=== PATIENT | female | born 1975 | race Caucasian/White ===

== ENCOUNTER 2017-03-01 00:35 | Emergency (ER) | payer OTHER ==
[2017-03-01 03:00] VITALS: BP 110/74
== END 2017-03-01 03:00 | disposition home or self-care (01) ==
LOC: ED 00:35
DX: H66.93 Otitis media, unspecified, bilateral (principal)

== ENCOUNTER 2018-01-26 08:48 | Inpatient (IN) | payer OTHER ==
[~2018-01-26] VITALS: Ht 157.5 cm; Wt 82.6 kg
[2018-01-26 08:57] VITALS: Ht 157.5 cm; Wt 82.6 kg
[2018-01-26 09:50] LABS: BASOPHIL % 0.5 % (0-2)
[2018-01-26 10:00] LABS: CALCIUM 8.8 mg/dL (8.5-10.1); CARBON DIOXIDE 27.2 mmol/L (21-32); CHLORIDE SERUM 102 mmol/L (98-107); CREATININE SERUM 0.8 mg/dL (0.6-1.0); GFR1 > 60 mL/min; GLUCOSE SERUM 94 mg/dL (74-106); SODIUM SERUM 138 mmol/L (136-145)
[2018-01-26 10:04] LABS: ALBUMIN 3.9 g/dL (3.4-5.0); ALKALINE PHOSPHATASE 70 U/L (46-116); ALT/SGPT 30 U/L (14-59); AST/SGOT 19 U/L (15-37); BILIRUBIN TOTAL 0.2 mg/dL (0.20-1.00); CHOLESTEROL 179 mg/dL (<200); CHOLESTEROL/HDL RATIO 3.3; HDL CHOLESTEROL 55 mg/dL (40-60); LIPASE 162 IU/L (73-393); TOTAL PROTEIN, SERUM 8.2 g/dL (6.4-8.2); TRIGLYCERIDES 152 mg/dL (<150)
[2018-01-26 10:06] LABS: PLATELET COUNT 488 x10^3mcL (130-400); RED CELL DISTRIBUTION WIDTH 21.2 % (11.5-14.5)
[2018-01-26 10:08] LABS: T3 TOTAL 0.89 ng/mL
[2018-01-26 10:45] LABS: FREE T4 1.13 ng/dL (0.76-1.46); FREE THYROXINE INDEX 2.9 ug/dL (1.4-4.5); T4(THYROXINE) 8.6 ug/dL (4.7-13.3)
[2018-01-26 12:21] LABS: microscopic required? NO
[2018-01-26 12:26] VITALS: BP 115/73
[2018-01-26 12:29] LABS: UA SPECIFIC GRAVITY <=1.005 (1.005-1.035); urine erythrocyte NEGATIVE (NEGATIVE)
[2018-01-26 12:35] LABS: AMPHETAMINE QUAL UR NONE DETECTED (NEG <=1000)
[2018-01-26 15:34] LABS: MAGNESIUM 1.9 mg/dL (1.8-2.4); PHOSPHOROUS 3.9 mg/dL (2.5-4.9)
[2018-01-26 17:00] VITALS: BP 123/74
[2018-01-26 21:49] VITALS: BP 95/66
[2018-01-27 06:28] VITALS: BP 119/75
[2018-01-27 06:37] LABS: CALCIUM 8.8 mg/dL (8.5-10.1); CARBON DIOXIDE 24.2 mmol/L (21-32); CHLORIDE SERUM 105 mmol/L (98-107); CREATININE SERUM 0.6 mg/dL (0.6-1.0); GFR1 > 60 mL/min; GLUCOSE SERUM 83 mg/dL (74-106); MAGNESIUM 1.8 mg/dL (1.8-2.4); PHOSPHOROUS 4.6 mg/dL (2.5-4.9); POTASSIUM SERUM 4.4 mmol/L (3.5-5.1); SODIUM SERUM 140 mmol/L (136-145)
[2018-01-27 07:46] LABS: PLATELET COUNT 494 x10^3mcL (130-400); RED CELL DISTRIBUTION WIDTH 20.7 % (11.5-14.5)
[2018-01-27 08:20] VITALS: BP 115/73
[2018-01-27 09:36] LABS: BAND NEUTROPHIL 4 % (0-10); BASOPHIL 0 % (0-2); MONOCYTE 5 % (0-7); SEGMENTED NEUTROPHILS 50 % (37-75); rbc morphology (normal/abnorm) ABNORMAL (NORMAL)
[2018-01-27 09:38] LABS: ovalocyte/elliptocyte 1+; target cell (codocyte) 1+
[2018-01-27] MEDS ORDERED: GOOD SENSE OMEP20 MG PO (11:19)
[2018-01-27 11:23] VITALS: BP 115/73
[2018-01-27 12:47] VITALS: BP 106/76
[2018-01-27] MEDS ORDERED: FLE10 PO (17:25)
== END 2018-01-27 18:02 | disposition home or self-care (01) | DRG 206 ==
LOC: ED 08:48 → DU 10:57
PROVIDERS: Family Medicine; Specialist
DX: M94.0 Chondrocostal junction syndrome [Tietze] (principal); J45.909 Unspecified asthma, uncomplicated; E78.5 Hyperlipidemia, unspecified; D64.9 Anemia, unspecified; D47.3 Essential (hemorrhagic) thrombocythemia
CPT/HCPCS: 83880; 84439; J2405; J2916; J7030; Q0092